=== PATIENT | female | born 1995 | race Caucasian/White ===

== ENCOUNTER 2022-08-24 20:55 | Emergency (ER) | payer BC, SELFPAY ==
[2022-08-24 20:58] VITALS: BP 136/94; PULSE 130; RESP 16; TEMP 36.7; O2SAT 98
--- NOTE | 2022-08-24 21:31 | ED.GENADULT ---
HPI - General Adult General Chief complaint: Alcohol/Intoxication Stated complaint: ETOH, Suicidal Time Seen by Provider: 08/24/22 21:07 History of Present Illness HPI narrative: 27-year-old young woman presenting to the emergency department after calling for help after drinking an excessive amount of alcohol. Probably started drinking somewhere between 6-9 hours ago and with further questioning does reveal that she had hoped to black out and not wake up. She says been quite sad especially since her partner left her. They had been together 8 years. He left about 6 months ago. He apparently was a [employer] man. Would be gone a lot evenings or nights at which point Chante began drinking heavily even 12-24 pack a day. 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 She feels that it is just strange that she is here; she is the counsellor. She wishes she could do more for the kids but maybe it is not her. Does have family in [place]. She also notes that she did self-harm siri apparently taking a flat head screwdriver against her left wrist and gouging. This is the 1st time in about 6 years. Does have a history of hospitalization around that time in [place] I believe it was [facility]. Tonrachel she just thought she could be done with all of this. Recalls a good deal of agitation if she is not drinking but does not seem to endorse significant otherwise alcohol withdrawal symptoms. Has never formally detoxed, never to treatment. Sounds like about 5 years ago did try AA but she was a 21-something woman among 40-something year old men and diddn't seem the right fit. Tonrachel she was the one who called for help. Her plan was to drink a 175 of vodka. Sounds as though she had about half of it. She was also intending to take 18 tablets of ibuprofen; sounds like that is all that was in the bottle. She did not take the pills she says. Related Data Allergies Allergy/AdvReac Type Severity Reaction Status Date / Time codeine Allergy Verified 08/24/22 21:04 Review of Systems Status of ROS: Reports: 6 or more systems reviewed and unremarkable except as noted in History and below PFSH PFSH Social History Smoking Status: Never smoker Second hand tobacco smoke exposure: No Non-prescribed substance use: denies use service: No Exam Narrative: Exam Narrative: Pleasant. Clearly very sad. Eyes are moist. Eyes are also injected. Subtly slurring her words. Breathing easily. Head looks to be atraumatic. Neck is supple. Speech isn't pressured. Mood is depressed or sad and affect is appropriate. Lungs appear to be clear. Heart is elevated to tachycardic in a regular rhythm. Extremities are well perfused. Abdomen is soft. Her skin is warm and dry. There is mild abrasion in somewhat of a vertical orientation volar outer distal wrist. Const: Vital Signs, click to edit/add: Vital Signs - 24 hr 08/24/22 20:58 08/24/22 21:37 08/24/22 22:45 Temperature 98.0 F Pulse Rate [Left P ulse Oximeter] 130 H Respiratory Rate 16 Blood Pressure [Ri ght Upper Arm] 136/94 H Pulse Oximetry 98 96 96 Oxygen Delivery Me thod Room Air Room Air 08/24/22 23:16 08/25/22 00:34 08/25/22 02:17 Temperature 97.1 F L Pulse Rate [Left P ulse Oximeter] 92 80 91 Respiratory Rate 16 14 16 Blood Pressure [Ri ght Upper Arm] 104/69 Pulse Oximetry 93 96 99 Oxygen Delivery Me thod Room Air Room Air Room Air 08/25/22 07:20 Temperature 98.6 F Pulse Rate [Left P ulse Oximeter] 91 Respiratory Rate 20 Blood Pressure [Ri ght Upper Arm] 119/82 Pulse Oximetry 98 Oxygen Delivery Me thod Room Air Documenting provider has reviewed patient's vital signs: yes Course Vital Signs Vital signs: Initial Vital Signs Temperature 98.0 F 08/24/22 20:58 Temperature Source Temporal Artery Scan 08/24/22 20:58 Pulse Rate 130 H 08/24/22 20:58 Pulse Rhythm 08/24/22 20:58 Respiratory Rate 16 08/24/22 20:58 Blood Pressure 136/94 H 08/24/22 20:58 Blood Pressure Mean 108 08/24/22 20:58 Blood Pressure Position Semi-Fowlers 08/24/22 20:58 Pulse Oximetry 98 08/24/22 20:58 Oxygen Delivery Method 08/24/22 20:58 Vital Signs Temperature 98.0 F 08/24/22 20:58 Pulse Rate 130 H 08/24/22 20:58 Respiratory Rate 16 08/24/22 20:58 Blood Pressure 136/94 H 08/24/22 20:58 Pulse Oximetry 98 08/24/22 20:58 Oxygen Delivery Method 08/24/22 20:58 Temperature 98.6 F 08/25/22 07:20 Pulse Rate 91 08/25/22 07:20 Respiratory Rate 20 08/25/22 07:20 Blood Pressure 119/82 08/25/22 07:20 Pulse Oximetry 98 08/25/22 07:20 Oxygen Delivery Method 08/25/22 07:20 Medical Decision Making MDM Narrative Medical decision making narrative: Certainly concerning as to motivation for drinking so heavily today. I would anticipate further psychiatric assessment once more sober. I talked to Chante this morning she is still maintaining that she feels like she wants to . Spoke to the DEC business systems administrator and interview imminent. Lab Data Lab results reviewed: Yes I reviewed the patient's lab results Labs: Lab Results 08/24/22 08/24/22 08/24/22 Range/Units 21:45 21:45 22:00 WBC 6.67 (4.50-11.00) K/uL RBC 4.66 (4.00-5.20) m/uL Hgb 14.4 (12.0-16.0) gm/dL Hct 42.8 (33.0-51.0) % MCV 92 (80-100) fL MCH 31 (26-34) pg MCHC 34 (32-36) gm/dL RDW Coeff of Terry 12.8 (11.5-15.5) % Plt Count 386 (140-440) K/uL Neut % (Auto) 52.0 (42.0-72.0) % Lymph % (Auto) 40.0 (20-44) % Titus % (Auto) 5.4 (0.0-11.0) % Eos % (Auto) 1.3 (0.0-7.0) % Baso % (Auto) 0.6 (0.0-3.0) % Neut # (Auto) 3.46 (1.7-7.0) K/uL Lymph # (Auto) 2.67 (0.90-2.90) K/uL Titus # (Auto) 0.40 (0.00-0.90) K/UL Eos # (Auto) 0.09 (0.00-0.50) K/uL Baso # (Auto) 0.04 (0.00-0.30) K/uL Sodium (135-149) mmol/L Potassium (3.6-5.1) mmol/L Chloride (96-114) mmol/L Carbon Dioxide (20-32) mmol/L BUN (5-24) mg/dL Creatinine (0.5-1.5) mg/dL Estimated GFR ml/min Glucose (60-115) mg/dL Calcium (8.4-10.6) mg/dL Salicylates (1.0-10) mg/dL Urine Opiates Screen Negative (Negative) Ur Oxycodone Screen Negative (Negative) Urine Methadone Screen Negative (Negative) Ur Propoxyphene Screen Negative (Negative) Acetaminophen (10.0-30.0) ug/mL Ur Barbiturates Screen Negative (Negative) U Tricyclic Antidepress Negative (Negative) Ur Phencyclidine Scrn Negative (Negative) Ur Amphetamines Screen Negative (Negative) U Methamphetamines Scrn Negative (Negative) U Benzodiazepines Scrn Negative (Negative) Urine Cocaine Screen Negative (Negative) U Marijuana (THC) Screen POSITIVE A* (Negative) Ur Drug Screen Comment See Note Ethyl Alcohol (0.01-0.03) % SARS-CoV-2 (PCR) Negative SARS-CoV-2 (Negative) 08/24/22 Range/Units 22:00 WBC (4.50-11.00) K/uL RBC (4.00-5.20) m/uL Hgb (12.0-16.0) gm/dL Hct (33.0-51.0) % MCV (80-100) fL MCH (26-34) pg MCHC (32-36) gm/dL RDW Coeff of Terry (11.5-15.5) % Plt Count (140-440) K/uL Neut % (Auto) (42.0-72.0) % Lymph % (Auto) (20-44) % Titus % (Auto) (0.0-11.0) % Eos % (Auto) (0.0-7.0) % Baso % (Auto) (0.0-3.0) % Neut # (Auto) (1.7-7.0) K/uL Lymph # (Auto) (0.90-2.90) K/uL Titus # (Auto) (0.00-0.90) K/UL Eos # (Auto) (0.00-0.50) K/uL Baso # (Auto) (0.00-0.30) K/uL Sodium 149 (135-149) mmol/L Potassium 4.1 (3.6-5.1) mmol/L Chloride 112 (96-114) mmol/L Carbon Dioxide 24 (20-32) mmol/L BUN 16 (5-24) mg/dL Creatinine 1.1 (0.5-1.5) mg/dL Estimated GFR 71 ml/min Glucose 93 (60-115) mg/dL Calcium 8.9 (8.4-10.6) mg/dL Salicylates < 1.0 L (1.0-10) mg/dL Urine Opiates Screen (Negative) Ur Oxycodone Screen (Negative) Urine Methadone Screen (Negative) Ur Propoxyphene Screen (Negative) Acetaminophen < 10.0 L (10.0-30.0) ug/mL Ur Barbiturates Screen (Negative) U Tricyclic Antidepress (Negative) Ur Phencyclidine Scrn (Negative) Ur Amphetamines Screen (Negative) U Methamphetamines Scrn (Negative) U Benzodiazepines Scrn (Negative) Urine Cocaine Screen (Negative) U Marijuana (THC) Screen (Negative) Ur Drug Screen Comment Ethyl Alcohol 0.33 H* (0.01-0.03) % SARS-CoV-2 (PCR) (Negative) Discharge Plan Discharge Clinical Impression: Alcoholic intoxication, Suicidal intent Follow Up/Referrals: Provider,Not a Local [Primary Care Provider] -
[2022-08-24 21:37] VITALS: O2SAT 96
[2022-08-24 22:03] LABS: Amphetamine Screen Urine Negative (Negative); Barbiturate Screen Urine Negative (Negative); Benzodiazepines Screen Urine Negative (Negative); Cocaine Screen Urine Negative (Negative); Methadone Screen Urine Negative (Negative); Methamphetamines Screen Urine Negative (Negative); Opiate Screen Urine Negative (Negative); Oxycodone Screen Urine Negative (Negative); Phencyclidine Screen Urine Negative (Negative); Tricyclic Antidepressant Urine Negative (Negative)
[2022-08-24] MEDS: 0.9 % SODIUM CHLORIDE 1000 ml 1,000 ML IV (22:05)
[2022-08-24 22:06] LABS: Cannabinoid Screen Urine POSITIVE (Negative)
--- NOTE | 2022-08-24 22:06 | ED.NURSE ---
Critical result from lab: positive THC. and RN updated.
[2022-08-24 22:14] LABS: Basophils Absolute Auto 0.04 K/uL (0.00-0.30); Basophils Percent Auto 0.6 % (0.0-3.0); Eosinophils Absolute Auto 0.09 K/uL (0.00-0.50); Eosinophils Percent Auto 1.3 % (0.0-7.0); Hematocrit 42.8 % (33.0-51.0); Hemoglobin* 14.4 gm/dL (12.0-16.0); Immature Granulocytes Abs Auto 0.05 K/uL (0.00-0.30); Immature Granulocytes Pct Auto 0.7 %; Lymphocytes Absolute Auto 2.67 K/uL (0.90-2.90); Mean Corpuscular HGB Conc 34 gm/dL (32-36); Mean Corpuscular Hemoglobin 31 pg (26-34); Mean Corpuscular Volume 92 fL (80-100); Monocytes Percent Auto 5.4 % (0.0-11.0); Neutrophils Absolute Auto 3.46 K/uL (1.7-7.0); Platelet Count* 386 K/uL (140-440); RDW Coefficient of Variation % 12.8 % (11.5-15.5); Red Blood Count 4.66 m/uL (4.00-5.20); White Blood Count* 6.67 K/uL (4.50-11.00)
[2022-08-24 22:18] LABS: Slide Review Reflex No
[2022-08-24 22:26] LABS: Chloride* 112 mmol/L (96-114); Potassium* 4.1 mmol/L (3.6-5.1); Sodium* 149 mmol/L (135-149)
[2022-08-24 22:29] LABS: Blood Urea Nitrogen* 16 mg/dL (5-24); Carbon Dioxide* 24 mmol/L (20-32); Creatinine* 1.1 mg/dL (0.5-1.5); Estimated Glomerular Filt Rate 71 ml/min
[2022-08-24 22:30] LABS: Calcium* 8.9 mg/dL (8.4-10.6); Glucose* 93 mg/dL (60-115)
[2022-08-24 22:31] LABS: Acetaminophen* < 10.0 ug/mL (10.0-30.0); Salicylate* < 1.0 mg/dL (1.0-10)
[2022-08-24 22:37] LABS: SARS PCR* Negative SARS-CoV-2 (Negative)
[2022-08-24 22:38] LABS: Ethanol* 0.33 % (0.01-0.03)
--- NOTE | 2022-08-24 22:39 | ED.NURSE ---
Critical result from lab: ETOH 0.33. and RN updated.
[2022-08-24 22:45] VITALS: O2SAT 96
[2022-08-24] MEDS: LORazepam 2 MG/ML inj 1.5 MG IVP (23:06)
[2022-08-24 23:16] VITALS: PULSE 92; RESP 16; O2SAT 93
--- NOTE | 2022-08-24 23:17 | ED.NURSE ---
pt complaining of increased anxiety, MD informed. ordered ativan. Pt is now resting.
[2022-08-25 00:34] VITALS: PULSE 80; RESP 14; O2SAT 96
[2022-08-25 02:17] VITALS: BP 104/69; PULSE 91; RESP 16; TEMP 36.2; O2SAT 99
[2022-08-25 07:20] VITALS: BP 119/82; PULSE 91; RESP 20; TEMP 37; O2SAT 98
--- NOTE | 2022-08-25 08:22 | ED.NURSE ---
[facility] assessment started
--- NOTE | 2022-08-25 11:38 | ED.NURSE ---
has been resting. will get tsh and test.
--- NOTE | 2022-08-25 12:00 | ED.NURSE ---
dispatch was called and will transport ~1830, unless [facility] auto [employer] supervisor ok to take earlier. [facility] has accepted.
[2022-08-25 12:36] LABS: HCG Qualitative* Negative (Negative)
--- NOTE | 2022-08-25 12:45 | ED.NURSE ---
notice to patient of rights under emergency hospitalization read to pt. is on a 72 hr hold. understands that she will be going to [facility] [place]. is worried about her work.
[2022-08-25 14:25] VITALS: BP 121/74; PULSE 86; RESP 20; TEMP 37.2; O2SAT 99
--- NOTE | 2022-08-25 14:49 | ED.NURSE ---
jayla was called and aware that she will be leaving ~1400. purvi was informed of the transfer that will occur at ~1400.
== END 2022-08-25 14:40 | disposition other institution (70) ==
PROVIDERS: Emergency Provider Family Medicine
DX: R45.851 Suicidal ideations (principal); F10.129 Alcohol abuse with intoxication, unspecified; Y90.8 Blood alcohol level of 240 mg/100 ml or more
CPT/HCPCS: 36415; 80048; 80143; 80179; 80306; 82077; 84443; 84703; 85025; 87635; 94761; 96361; 96374; 99284; 99285; J2060; J7030

== ENCOUNTER 2022-08-26 03:36 | Outpatient (CLI) | payer BC, SELFPAY | END 2022-08-26 03:37 | disposition home or self-care (01) | LOC: AMB 03:37 | PROVIDERS: Visit Provider Family Medicine | DX: F32.9 Major depressive disorder, single episode, unspecified (principal); R45.851 Suicidal ideations ==